=== PATIENT | female | born 1990 | race Caucasian/White ===

== ENCOUNTER 2025-05-10 17:14 | Emergency (ER) | payer OTHER ==
[~2025-05-10] VITALS: Ht 162.6 cm; Wt 51.0 kg
[2025-05-10 17:21] VITALS: O2SAT 100
[2025-05-10 18:38] LABS: HCG SCREEN NEGATIVE
[2025-05-10 18:45] LABS: INR 1.0
[2025-05-10 18:54] LABS: CREATININE 0.7 mg/dL (0.6-1.0); UREA NITROGEN BLOOD 14 mg/dL (9-23)
[2025-05-10] MEDS: KETOROLAC 15MG/ML VIAL IV ONE ×2 (19:00→21:32)
[2025-05-10 19:19] LABS: CLARITY URINE CLEAR (CLEAR); COLOR URINE YELLOW (YELLOW); GLUCOSE URINE NEGATIVE (NEGATIVE); KETONES URINE NEGATIVE (NEGATIVE); LEUKOCYTE ESTERASE URINE NEGATIVE (NEGATIVE); NITRITE URINE NEGATIVE (NEGATIVE); OCCULT BLOOD URINE NEGATIVE (NEGATIVE); PH URINE 6.0 (4.5-8.0); PROTEIN URINE NEGATIVE (NEGATIVE); SPECIFIC GRAVITY URINE 1.004 (1.005-1.030); UROBILINOGEN URINE 0.2 E.U./dL (0.2-1.0)
[2025-05-10 20:08] LABS: BASOPHILS % 1.0 % (0.0-2.0); EOSINOPHILS % 1.9 % (0.0-5.0); HEMATOCRIT. 36.6 % (36.0-48.0); HEMOGLOBIN. 12.1 g/dL (12.0-16.0); LYMPHOCYTES % 24.2 % (20.0-50.0); MEAN PLATELET VOLUME 7.7 fl (7.4-10.4); MONOCYTES % 8.4 % (2.0-8.0); NEUTROPHILS % 64.5 % (40.0-76.0); PLATELET 260 x1000/uL (130-400); RED BLOOD CELL COUNT 4.08 mill/uL (4.2-5.4); RED CELL DISTRIBUTION WIDTH 13.0 % (11.6-14.6)
[2025-05-10] MEDS ORDERED: IBUP-2030 MT (21:21)
[2025-05-10 21:36] VITALS: BP 113/73; PULSE 76; RESP 16; TEMP 36.8; O2SAT 100
[2025-05-10] MEDS ORDERED: IOHEXOL-300 100 ML BOTTLE ONE (23:54)
[2025-05-12 19:06] LABS: CHLAMYDIA TRACHOMATIS NAA Negative (Negative); NEISSERIA GONORRHOEAE NAA Negative (Negative)
== END 2025-05-10 21:39 | disposition home or self-care (01) ==
LOC: ER 17:14
DX: R10.31 Right lower quadrant pain (principal)
CPT/HCPCS: 99285; 74177; 96374; 76830; 76856; 87491; 87591; 80048; 81003; 84703; 83690; 85025; 85610; 85730; 86850; 86900; 86901; 36415; 96376; J1885; Q9967